=== PATIENT | female | born 1985 | race Caucasian/White ===

== ENCOUNTER 2019-07-20 06:30 | Inpatient (IN) | payer BC ==
[2019-07-20] MEDS ORDERED: OXYTOCIN 10 UNIT/ML 1 ML VIAL IM PRN (06:52)
[2019-07-20] MEDS ORDERED: TERBUTALINE 1 MG/ML VIAL SQ PRN (06:52)
[2019-07-20] MEDS ORDERED: LIDOCAINE 0.5% (PF) 5 MG/ML (50 ML SDV) SQ PRN (06:52)
[2019-07-20] MEDS ORDERED: CARBOPROST TROMETHAMINE 250 MCG/ML 1 ML AMP IM PRN (06:52)
[2019-07-20] MEDS ORDERED: AMPICILLIN 2,000 MG in SODIUM CHLORIDE 0.9% 100 ML IVPB STA (06:52)
[2019-07-20] MEDS ORDERED: METHYLERGONOVINE 0.2 MG/ML 1 ML AMP IM PRN (06:52)
--- NOTE | 2019-07-20 07:09 | P.HPOB ---
History of Present Illness H&P Date: 07/20/19 Chief Complaint: Leaking of fluid. This patient is a pleasant 33-year-old 1 para 0 female estimated date of confinement 07/28/2019 estimated gestational age 38-6/7 weeks who presents to labor and delivery with complaints of gush of fluid at approximately 5:45 this morning. Patient's care has been uncomplicated. She did have a positive culture for group B strep. Patient was also measuring big and an ultrasound approximately 5 days ago that showed 8 lbs. 3 oz. Patient is having irregular mild contractions. Examination shows gross rupture membranes and cervix 1-2 cm dilated and thick. Review of Systems Genitourinary: Reports Menstruation: Reports amenorrhea Past Medical History Past Medical History: No Reported History History of Any Multi-Drug Resistant Organisms: None Reported Past Surgical History: No Surgical Hx Reported Past Anesthesia/Blood Transfusion Reactions: No Reported Reaction Past Psychological History: No Psychological Hx Reported Smoking Status: Never smoker Past Alcohol Use History: None Reported Past Drug Use History: None Reported Medications and Allergies Home Medications Medication Instructions Recorded Confirmed Type Pnv No.95/Ferrous Fum/Folic AC 1 tab PO DAILY 07/20/19 07/20/19 History [ Multivitamin Tablet] Allergies Allergy/AdvReac Type Severity Reaction Status Date / Time No Known Allergies Allergy Verified 07/20/19 06:41 Exam Intake and Output 07/19/19 07/20/19 07/20/19 22:59 06:59 14:59 Other: Weight 103.873 kg - OBG Physical Exam Abdomen: bowel sounds normal, no diffuse tenderness, no bruit present, no guarding noted, no hepatomegaly, no splenomegaly, no mass Vulva: both: normal Vagina: Gross rupture of membranes Vagina: no discharge Cervix: no lesion (Cervix is 1-2 cm dilated and thick), no discharge Uterus: enlarged (Fundal height 41 cm) Results blood work shows she is A positive, rubella immune, RPR nonreactive, HIV nonreactive, hepatitis B negative, Glucola was normal, ultrasounds of shown normal anatomy. Most recent ultrasound 5 days ago showed the baby to be vertex 8 lbs. 3 oz. Group B strep was positive. Assessment and Plan Assessment: This is a pleasant 33-year-old 1 para 0 female 38-6/7 weeks gestation dated with spontaneous rupture membranes at quarter to 6 this morning. Patient is not having regular contractions and has a positive group B strep culture. Pl an is antibiotic prophylaxis and Pitocin induction/augmentation of labor. (1) 38 weeks gestation of Current Visit: Yes Status: Acute Code(s): Z3A.38 - 38 WEEKS GESTATION OF SNOMED Code(s): 11309002 (2) Group B streptococcal carriage complicating Current Visit: Yes Status: Acute Code(s): O99.820 - STREPTOCOCCUS B CARRIER STATE COMPLICATING SNOMED Code(s): 822564823406135 (3) Premature rupture of membranes Current Visit: Yes Status: Acute Code(s): O42.90 - REINALDO ROM, 7TH0 BETW RUPT & ONST LABR, UNSP WEEKS OF GEST SNOMED Code(s): 21903276
[2019-07-20 07:27] LABS: Basophils % (A) 0 %; Eosinophils # (A) 0.1 k/uL (0-0.7); Eosinophils % (A) 1 %; HCT 37.2 % (34.0-46.0); HGB 12.5 gm/dL (11.4-16.0); Lymphocytes # (A) 1.8 k/uL (1.0-4.8); Lymphocytes % (A) 24 %; MCH 32.3 pg (25.0-35.0); MCHC 33.6 g/dL (31.0-37.0); MCV 96.1 fL (80.0-100.0); Monocytes # (A) 0.4 k/uL (0-1.0); Monocytes % (A) 5 %; Neutrophils % (A) 67 %; Platelet Count 199 k/uL (150-450); RBC 3.87 m/uL (3.80-5.40); RDW 14.2 % (11.5-15.5); WBC 7.5 k/uL (3.8-10.6)
[2019-07-20] MEDS: LACTATED RINGERS 1,000 ML IV SCH ×3 (07:31→15:24)
[2019-07-20] MEDS: OXYTOCIN 30 UNITS/500 ML NS 30 UNIT in SALINE 1 500ML.BAG IV SCH (07:32)
[2019-07-20] MEDS ORDERED: BUTORPHANOL 1 MG/ML 1 ML VIAL IV PRN (09:09)
[2019-07-20] MEDS: AMPICILLIN 1,000 MG in SODIUM CHLORIDE 0.9% 50 ML IVPB SCH ×3 (11:41→19:26)
[2019-07-20] MEDS ORDERED: fentaNYL (PF) 50 MCG/ML 5 ML AMP ONE (12:05)
[2019-07-20] MEDS ORDERED: ROPIVACAINE 5MG/ML 20ML VIAL ONE (12:05)
[2019-07-20] MEDS ORDERED: SODIUM CHLORIDE 0.9% 100 ML BAG ONE (12:05)
--- NOTE | 2019-07-20 12:38 | P.MSEPDOC ---
Presenting Problems - Arrival Data Date of Arrival on Unit: 07/20/19 Time of Arrival on Unit: 07:00 Mode of Transport: Ambulatory - Complaint OB-Reason for Admission/Chief Complaint: Rule Out SROM Medical History - Information : 1 Para: 0 Term: 0 : 0 Abortions: Spontaneous or Elective: 0 Number of Living Children: 0 - Gestational Age Gestational Age by VALDO (wks/days): 38 Weeks and 6 Days Review of Systems - Review of Systems Constitutional: No problems Breast: No problems ENT: No problems Cardiovascular: No problems Respiratory: No problems Gastrointestinal: No problems Genitourinary: No problems Musculoskeletal: No problems Neurological: No problems Skin: No problems Vital Signs - Temperature Temperature: 97.4 F Temperature Source: Temporal Artery Scan - Pulse Right Sitting Brachial Pulse Rate: 73 Pulse Assessment Method: Automatic Cuff - Respirations Respiratory Rate: 18 Oxygen Delivery Method: Room Air O2 Sat by Pulse Oximetry: 98 - Blood Pressure Right Arm Sitting Blood Pressure: 129/77 Blood Pressure Mean: 94 Blood Pressure Source: Automatic Cuff Medical Screen Scoring (Pre) - Cervical Exam Dilation: 1-3 cm = 1 Membranes: Ruptured = 3 - Uterine Contractions Frequency: > 5 minutes apart = 1 Duration: > 40 seconds = 2 - Maternal Vital Signs Maternal Temperature: N/A Maternal Blood Pressure: N/A Signs of Preeclampsia: N/A Maternal Respirations: N/A - Maternal Trauma Maternal Trauma: N/A - Assessment - Baby A Baseline FHR: 125 Heart Rate - NICHD Category: Category I (Normal) = 0 NST: Reactive - Total Score - Baby A Total Score - Baby A: 7 - Total Score - Baby B Total Score - Baby B: 7 - Total Score - Baby C Total Score - Baby C: 7 - Level of Risk - Baby A Level of Risk - Baby A: Medium (6-9) - Level of Risk - Baby B Level of Risk - Baby B: Medium (6-9) - Level of Risk - Baby C Level of Risk - Baby C: Medium (6-9) Physician Notification (Pre) - Physician Notified Physician Notified Date: 07/20/19 Physician Notified Time: 06:55 New Order Received: Yes (admit) Disposition - Disposition OB Disposition: Admit, LDRP Suite I agree with the RN Medical Screening Exam: Yes Risk & Benefit of care provided described in d/c instruction: Yes Diagnosis: ENCOUNTER FOR FULL-TERM UNCOMPLICATED DELIVERY
[2019-07-20] MEDS ORDERED: SIMETHICONE 80 MG CHEWABLE PO PRN (21:58)
[2019-07-20] MEDS ORDERED: HYDROcodone/APAP 5-325MG 1 EACH TAB PO PRN (21:58)
[2019-07-20] MEDS ORDERED: diphenhydrAMINE 50 MG CAP PO PRN (21:58)
[2019-07-20] MEDS ORDERED: WITCH HAZEL 1 EACH MED..PAD TOPICAL PRN (21:58)
[2019-07-20] MEDS ORDERED: BENZOCAINE/MENTHOL SPRAY 1 GM/SPRAY AEROSOL TOPICAL PRN (21:58)
[2019-07-20] MEDS ORDERED: diphenhydrAMINE 50 MG/ML 1 ML VIAL IVP PRN ×2 (21:58)
[2019-07-20] MEDS ORDERED: ZOLPIDEM 5 MG TAB PO PRN (21:58)
[2019-07-20] MEDS ORDERED: ACETAMINOPHEN TAB 325 MG TAB PO PRN (21:58)
[2019-07-20] MEDS ORDERED: LANOLIN CREAM 5 GM TUBE TOPICAL PRN (21:58)
[2019-07-20] MEDS ORDERED: HYDROCORTISONE 2.5% RECTAL CREAM 30 GM TUBE RECTAL PRN (21:58)
[2019-07-20] MEDS ORDERED: diphenhydrAMINE 25 MG CAP PO PRN (21:58)
[2019-07-20] MEDS ORDERED: OXYTOCIN 20 UNITS/1000 ML NS 1,000 ML IV SCH (22:00)
--- NOTE | 2019-07-20 22:08 | P.PROBDLV ---
Vaginal Delivery Note - . Vaginal Delivery Note: Kathleen progressed to complete and pushing with vacuum assisted vaginal delivery of a viable male over a third-degree perineal laceration. During the process of pushing, baseline heart rate was between 102 and 1:15. While she was pushing the heart rate would drop into the 80s but rapid return to baseline was noted following stopping of her pushing. This happened throughout the pushing process. Once she brought the baby to the perineum, the heart rate would go from the baseline of approximately 100 down to the 60s. Again there was good return to baseline following cessation of pushing. On the last push as she brought the baby to almost the heart rate dropped into the 40s and a vacuum was applied and with the vacuum insufflated to 40 mmHg/the lowest level in the green zone for the vacuum device, using gentle traction and guidance we were able to easily deliver the head fully from the vagina and once it was delivered release of the vacuum was done last in total of approximately 5 seconds. A nuchal cord 1 was then noted and reduced. With gentle downward traction the anterior shoulder was not delivering is easily as I would like and with there being some concern over possible macrosomia I did reach into the posterior vagina and using a clockwise corkscrew motion with my finger under the exam but was easily able to deliver the remainder the baby and once baby was out immediate spontaneous cry was noted mouth nares were bulb suctioned and the baby was placed on mother's abdomen where nursery personnel assume care and up umbilical cord was clamped and cut in usual fashion. Placenta was then delivered intact and Pitocin was added to the IV. A third-degree perineal laceration was noted and it actually go posteriorly on the left side behind her hemorrhoid. Following instillation of local anesthetic and Using 3-0 Vicryl and initial base layer was placed to reapproximate the tissues and then the remainder of the laceration was repaired in usual fashion as in an episiotomy. Prior to repair and after repair I did do a rectal exam and no rectal involvement was noted. scores were 9 and 9 at one and 5 minutes respectively and the weight was 8 lbs. 3 oz. Both mother and baby are currently stable following delivery.
[2019-07-20] MEDS: IBUPROFEN 600 MG TAB PO PRN (23:35)
--- NOTE | 2019-07-21 06:09 | P.PNOBGVD ---
Subjective - Subjective Patient reports: Reports appetite normal, Reports voiding normally, Reports pain well controlled, Reports ambulating normally : doing well Objective - Latest Vital Signs Latest vital signs: Vital Signs Temp Pulse Resp BP Pulse Ox 07/21/19 04:00 99.1 F 75 18 118/62 98 07/21/19 00:00 98.5 F 98 16 128/58 07/20/19 23:55 98.6 F 100 16 127/58 07/20/19 23:25 98.1 F 81 16 120/60 07/20/19 22:55 98.0 F 86 16 124/72 07/20/19 22:40 98.2 F 72 16 119/70 07/20/19 22:25 98.5 F 82 16 121/65 07/20/19 22:10 87 16 121/58 07/20/19 21:55 98.4 F 97 16 111/57 07/20/19 12:37 97.4 F L 73 18 129/77 98 07/20/19 07:30 97.4 F L 73 18 129/77 98 07/20/19 06:42 97.0 F L 85 16 139/62 99 Intake and Output 07/20/19 07/20/19 07/21/19 14:59 22:59 06:59 Intake Total 250 250 Output Total 200 150 Balance -200 100 250 Intake: Oral 250 250 Output: Urine 200 Estimated Blood Loss 150 Other: Weight 103.873 kg - Exam Lungs: bilateral: normal Chest: Normal S1, Normal S2 Extremities: Present: normal Abdomen: Present: normal appearance, soft Uterus: Present: normal, firm Assessment and Plan Assessment: day #1. Patient is resting without new complaints. Vital signs are stable she is afebrile. Uterus is firm nontender she's having normal lochia. Plan today is to continue routine care. Most likely discharge home tomorrow. (1) 38 weeks gestation of Current Visit: Yes Status: Acute Code(s): Z3A.38 - 38 WEEKS GESTATION OF SNOMED Code(s): 10002989 (2) Group B streptococcal carriage complicating Current Visit: Yes Status: Acute Code(s): O99.820 - STREPTOCOCCUS B CARRIER STATE COMPLICATING SNOMED Code(s): 922043679438967 (3) Premature rupture of membranes Current Visit: Yes Status: Acute Code(s): O42.90 - REINALDO ROM, 7TH0 BETW RUPT & ONST LABR, UNSP WEEKS OF GEST SNOMED Code(s): 81288027
[2019-07-21 07:01] LABS: Basophils % (A) 0 %; Eosinophils % (A) 0 %; HCT 29.5 % (34.0-46.0); HGB 10.1 gm/dL (11.4-16.0); Lymphocytes % (A) 8 %; MCH 32.9 pg (25.0-35.0); MCHC 34.4 g/dL (31.0-37.0); MCV 95.6 fL (80.0-100.0); Mean Platelet Volume 8.2; Monocytes # (A) 0.6 k/uL (0-1.0); Monocytes % (A) 4 %; Neutrophils # (A) 11.9 k/uL (1.3-7.7); Neutrophils % (A) 87 %; Platelet Count 176 k/uL (150-450); RBC 3.08 m/uL (3.80-5.40); RDW 14.2 % (11.5-15.5); WBC 13.7 k/uL (3.8-10.6)
[2019-07-21] MEDS: IBUPROFEN 600 MG TAB PO PRN ×3 (08:28→23:33)
[2019-07-21] MEDS: SENNOSIDES-DOCUSATE SODIUM 1 EACH TAB PO SCH ×2 (08:28→20:08)
[2019-07-21] MEDS: OXYTOCIN 30 UNITS/500 ML NS 30 UNIT in SALINE 1 500ML.BAG IV SCH (20:12)
--- NOTE | 2019-07-22 06:00 | P.PNOBGVD ---
Subjective - Subjective Patient reports: Reports appetite normal, Reports voiding normally, Reports pain well controlled, Reports ambulating normally : doing well Objective - Latest Vital Signs Latest vital signs: Vital Signs Temp Pulse Resp BP Pulse Ox 07/22/19 00:00 98.0 F 74 16 125/79 100 07/21/19 16:00 98.4 F 79 16 117/72 07/21/19 12:00 98.2 F 82 16 101/66 07/21/19 08:00 98.1 F 75 16 120/70 Intake and Output 07/21/19 07/21/19 07/22/19 14:59 22:59 06:59 Other: # Voids 1 - Exam Lungs: bilateral: normal Chest: Normal S1, Normal S2 Extremities: Present: normal Abdomen: Present: normal appearance, soft Uterus: Present: normal, firm - Labs Labs: Abnormal Lab Results - Last 24 Hours (Table) 07/21/19 Range/Units 06:34 WBC 13.7 H (3.8-10.6) k/uL RBC 3.08 L (3.80-5.40) m/uL Hgb 10.1 L (11.4-16.0) gm/dL Hct 29.5 L (34.0-46.0) % Neutrophils # 11.9 H (1.3-7.7) k/uL Assessment and Plan Assessment: Post day #2. Patient is resting without complaints. Vital signs are stable she is afebrile. Uterus is firm nontender she's having normal lochia. Patient's baby is doing well however has not urinated and therefore will be seen by the spinner box this morning. Plan today is to continue routine care and discharge home later today. (1) 38 weeks gestation of Current Visit: Yes Status: Acute Code(s): Z3A.38 - 38 WEEKS GESTATION OF SNOMED Code(s): 40423735 (2) Group B streptococcal carriage complicating Current Visit: Yes Status: Acute Code(s): O99.820 - STREPTOCOCCUS B CARRIER STATE COMPLICATING SNOMED Code(s): 122439894221306 (3) Premature rupture of membranes Current Visit: Yes Status: Acute Code(s): O42.90 - REINALDO ROM, 7TH0 BETW RUPT & ONST LABR, UNSP WEEKS OF GEST SNOMED Code(s): 21338061
--- NOTE | 2019-07-22 06:09 | P.DS ---
Providers Date of admission: 07/20/19 06:53 Expected date of discharge: 07/22/19 Attending physician: Maxime Blancas Primary care physician: Stated None - Discharge Diagnosis(es) (1) 38 weeks gestation of Current Visit: Yes Status: Acute (2) Group B streptococcal carriage complicating Current Visit: Yes Status: Acute (3) Premature rupture of membranes Current Visit: Yes Status: Acute Hospital Course: Please see dictated H&P for intimate details of this patient's admission. Brief summary this is a pleasant 33-year-old 1 para 0 female 38-5/7 weeks' gestation is admitted to labor and delivery with spontaneous rupture membranes. Patient is given antibiotic prophylaxis for positive group B strep culture and Pitocin augmentation of labor. She subsequent was on have a vaginal delivery viable male infant. Please see dictated delivery note per Dr. Escobar. hemorrhage 2 patient's felt to be stable for discharge home follow up with me in 6 weeks. Procedures: Augmentation of labor and normal vaginal delivery (vacuum assist) Patient Condition at Discharge: Good Plan - Discharge Summary New Discharge Prescriptions: New Ibuprofen [Motrin] 600 mg PO Q6HR PRN #40 tab PRN Reason: Mild Pain Or Fever >= 100.5 No Action Pnv No.95/Ferrous Fum/Folic AC [ Multivitamin Tablet] 1 tab PO DAILY Discharge Medication List Pnv No.95/Ferrous Fum/Folic AC [ Multivitamin Tablet] 1 tab PO DAILY 07/20/19 [History] Ibuprofen [Motrin] 600 mg PO Q6HR PRN #40 tab 07/22/19 [Rx] Follow up Appointment(s)/Referral(s): Maxime Blancas MD [STAFF PHYSICIAN] - 08/31/19 11:00 am Patient Instructions/Handouts: Vaginal Delivery (DC) Activity/Diet/Wound Care/Special Instructions: No intercourse or anything per vagina for 6 weeks. Please call if any fever, chills, excessive vaginal bleeding, and/or abdominal pain. Discharge Disposition: HOME SELF-CARE
[2019-07-22] MEDS: IBUPROFEN 600 MG TAB PO PRN (07:50)
[2019-07-22] MEDS: SENNOSIDES-DOCUSATE SODIUM 1 EACH TAB PO SCH (07:51)
[2019-07-22 09:49] VITALS: BP 125/85; PULSE 75; RESP 18; TEMP 98.3
== END 2019-07-22 15:30 | disposition home or self-care (01) | DRG 768 ==
LOC: FBPOP 06:30 → 4FBP 06:53
PROVIDERS: ADMIT Obstetrics & Gynecology; ATTEND Obstetrics & Gynecology
PROC: 10D07Z6 Extraction of Products of Conception, Vacuum, Via Natural or Artificial Opening (ICD-10-PCS; principal; 2019-07-20)
PROC: 0DQR0ZZ Repair Anal Sphincter, Open Approach (ICD-10-PCS; 2019-07-20)
DX: O42.92 Full-term premature rupture of membranes, unspecified as to length of time between rupture and onset of labor (principal); Z37.0 Single live birth; O70.20 Third degree perineal laceration during delivery, unspecified; O22.43 Hemorrhoids in pregnancy, third trimester; O69.81X0 Labor and delivery complicated by cord around neck, without compression, not applicable or unspecified; O99.824 Streptococcus B carrier state complicating childbirth; Z3A.38 38 weeks gestation of pregnancy
CPT/HCPCS: 59025; 84112; 85025; 86850; 86900; 86901; 99213

== ENCOUNTER → 2020-07-20 | Outpatient (CLI) | payer OTHER ==
[2020-07-20 08:14] LABS: HGB 12.9 gm/dL (11.4-16.0); MCH 30.3 pg (25.0-35.0); MCHC 32.3 g/dL (31.0-37.0); MCV 93.8 fL (80.0-100.0); Mean Platelet Volume 7.2; Platelet Count 203 k/uL (150-450); RBC 4.26 m/uL (3.80-5.40); RDW 13.8 % (11.5-15.5); WBC 5.2 k/uL (3.8-10.6)
[2020-07-20 08:23] LABS: African American GFR (CKD) >90 (>60 ml/min/1.73 sqM); Glucose 97 mg/dL (74-99); Non-African American GFR(CKD) >90 (>60 ml/min/1.73 sqM)
--- NOTE | 2020-07-20 08:23 | US ---
EXAMINATION TYPE: Transabdominal DATE OF EXAM: 07/20/2020 7:21 AM COMPARISON: NONE CLINICAL HISTORY: Z36 Confirm dates,Z34.81. EXAM PERFORMED: Transabdominal (TA) EXAM MEASUREMENTS: GESTATIONAL AGE / DATING Physician Established: Not yet established Dates by LMP: ( 9 weeks/6 days) EDC: 02/16/21 Dates by First Scan: No previous. Dates by Current Scan for: (10 weeks/4 days) EDC: 02/11/2021 MATERNAL ANATOMY Uterus: 15.0 x 7.9 x 6.3cm Right Ovary: 1.8 x 2.1 x 1.0cm Left Ovary: 3.3 x 2.4 x 2.3cm Post CDS / Adnexa: wnl Presence of free fluid: no Presence of corpus luteal cyst: in left ovary = 2.0 x 1.7 x 2.1cm Presence of subchorionic bleed: no GESTATION / SURVEY CRL: 3.6cm (10 weeks/4 day Yolk Sac (normal less than 6mm): 3.7mm Heart Rate: 172 bpm Rhythm: Normal IUP: Single IUP Nuchal Translucency 10-14wks (normal less than 3mm): 1.1mm Date of LMP: 05/12/2020 Beta HcG (if available): NA Single, live IUP, 10 weeks/4 days, EDC: 02/11/2021, HR 172bpm. IMPRESSION: 1. Single intrauterine gestation estimated at 10 weeks 4 days gestation based on crown-rump length. C ardiac activity measures 172 bpm.
[2020-07-20 16:44] LABS: Hepatitis B Surface Antigen Non-Reactive (Non-Reactive)
[2020-07-20 17:34] LABS: HIV 2 AB Non-Reactive (Non-Reactive); HIV AB P24 Non-Reactive (Non-Reactive); HIV P24 AG Non-Reactive (Non-Reactive)
== END | disposition home or self-care (01) ==
LOC: RADUSWWP 07:00
PROVIDERS: ATTEND Obstetrics & Gynecology
DX: Z36.9 Encounter for antenatal screening, unspecified (principal); Z3A.10 10 weeks gestation of pregnancy; Z34.81 Encounter for supervision of other normal pregnancy, first trimester
CPT/HCPCS: 76801; 76813; 82565; 82947; 85027; 86762; 86780; 86850; 86900; 86901; 87340; 87390

== ENCOUNTER 2021-02-08 09:57 | Inpatient (IN) | payer OTHER ==
[2021-02-05 12:08] VITALS: BMI 43.0
--- NOTE | 2021-02-08 06:57 | P.HPOB ---
History of Present Illness H&P Date: 02/08/21 Chief Complaint: Primary section and tubal ligation This patient is a pleasant 35-year-old 2 para 1 female estimated date of confinement 02/15/2021 estimated gestational age 39-0/7 weeks who presents to labor and delivery for primary section for history of previous traumatic delivery and increased risk of shoulder dystocia. Patient is also requesting permanent sterilization. Patient's history is such that her last she had a long labor with an hour and a half of pushing, vacuum delivery, third degree laceration and also possible shoulder dystocia. Patient I discussed her delivery was requested section at this time which is reasonable. Patient also requesting permanent sterilization. is been uncomplicated. Review of Systems Genitourinary: Reports Menstruation: Reports amenorrhea Past Medical History Past Medical History: No Reported History History of Any Multi-Drug Resistant Organisms: None Reported Past Surgical History: No Surgical Hx Reported Past Anesthesia/Blood Transfusion Reactions: No Reported Reaction Past Psychological History: No Psychological Hx Reported Smoking Status: Never smoker Past Alcohol Use History: None Reported Past Drug Use History: None Reported - Past Family History Mother Family Medical History: No Reported History Medications and Allergies Home Medications Medication Instructions Recorded Confirmed Type Pnv No.95/Ferrous Fum/Folic AC 1 tab PO DAILY 07/20/19 02/05/21 History [ Multivitamin Tablet] Ibuprofen [Motrin] 600 mg PO Q6HR PRN #40 tab 07/22/19 02/05/21 Rx Allergies Allergy/AdvReac Type Severity Reaction Status Date / Time No Known Allergies Allergy Verified 02/05/21 12:02 Exam - OBG Physical Exam Abdomen: bowel sounds normal, no diffuse tenderness, no bruit present, no guarding noted, no hepatomegaly, no splenomegaly, no mass Vulva: both: normal Vagina: normal moisture, no discharge Cervix: no lesion, no discharge Uterus: enlarged Results blood work shows she is A positive, rubella immune, RPR nonreactive, hepatitis B negative, HIV is nonreactive, ultrasounds have been normal, group B strep was positive. Assessment and Plan Assessment: This is a pleasant 35-year-old 2 para 1 female 39-0/7 weeks gestation who is admitted to labor and delivery for primary section secondary to history of previous traumatic vaginal delivery and also requesting permanent sterilization. Plan is primary low transverse section and bilateral partial salpingectomy. Patient does understand that a tubal ligation is considered permanent however there is a failure rate of approximately less than 5 per thousand procedures done. She also understands surgery itself and apparently has risks including risks of infection, bleeding, possible injury to bowel, bladder, vessels, and/or other organs. All the patient's questions are answered and a written consent obtained. (1) 39 weeks gestation of Status: Acute Code(s): Z3A.39 - 39 WEEKS GESTATION OF SNOMED Code(s): 14206196 (2) Trauma to vagina during delivery Status: Acute Code(s): O71.89 - OTHER SPECIFIED OBSTETRIC TRAUMA SNOMED Code(s): 126605165 (3) Group B streptococcal carriage complicating Status: Acute Code(s): O99.820 - STREPTOCOCCUS B CARRIER STATE COMPLICATING SNOMED Code(s): 322732327380069
[2021-02-08] MEDS ORDERED: CITRIC ACID-SODIUM CITRATE 15 ML CUP PO ONE (10:52)
[2021-02-08] MEDS ORDERED: LACTATED RINGERS 1,000 ML IV ONE (10:52)
[2021-02-08] MEDS: LACTATED RINGERS 1,000 ML IV SCH ×3 (11:21→19:05)
[2021-02-08 11:41] LABS: Basophils % (A) 0 %; Eosinophils % (A) 1 %; HCT 36.8 % (34.0-46.0); HGB 12.6 gm/dL (11.4-16.0); Lymphocytes # (A) 1.2 k/uL (1.0-4.8); Lymphocytes % (A) 14 %; MCH 32.8 pg (25.0-35.0); MCHC 34.3 g/dL (31.0-37.0); MCV 95.4 fL (80.0-100.0); Mean Platelet Volume 8.5; Monocytes # (A) 0.4 k/uL (0-1.0); Monocytes % (A) 5 %; Neutrophils % (A) 80 %; Platelet Count 188 k/uL (150-450); RBC 3.86 m/uL (3.80-5.40); RDW 14.3 % (11.5-15.5); WBC 8.8 k/uL (3.8-10.6)
[2021-02-08] MEDS ORDERED: MORPHINE SULFATE (PF) 0.3 MG/0.3 ML SYR ONE (12:08)
[2021-02-08] MEDS ORDERED: KETOROLAC 15 MG/ML 1 ML VIAL ONE (12:08)
[2021-02-08] MEDS ORDERED: ONDANSETRON 4 MG/2 ML VIAL ONE (12:08)
[2021-02-08] MEDS ORDERED: NALBUPHINE 10 MG/ML (1 ML AMP) ONE (12:08)
[2021-02-08] MEDS ORDERED: OXYTOCIN 30 UNITS/500 ML NS BAG IV ONE (12:08)
[2021-02-08] MEDS ORDERED: ONDANSETRON 4 MG/2 ML VIAL IVP PRN (13:00)
[2021-02-08] MEDS ORDERED: LANOLIN CREAM 5 GM TUBE TOPICAL PRN (13:00)
[2021-02-08] MEDS ORDERED: IBUPROFEN 600 MG TAB PO PRN (13:00)
[2021-02-08] MEDS ORDERED: ZOLPIDEM 5 MG TAB PO PRN (13:00)
[2021-02-08] MEDS ORDERED: METOCLOPRAMIDE 5 MG/ML 2 ML VIAL IVP PRN (13:00)
[2021-02-08] MEDS ORDERED: OXYTOCIN 30 UNITS/500 ML NS 30 UNIT in SALINE 1 500ML.BAG IV SCH (13:00)
[2021-02-08] MEDS ORDERED: NALOXONE 0.4 MG/ML 1 ML VIAL IV PRN (13:00)
[2021-02-08] MEDS ORDERED: diphenhydrAMINE 25 MG CAP PO PRN (13:00)
--- NOTE | 2021-02-08 13:01 | P.OP ---
Date of Procedure: 02/08/21 Preoperative Diagnosis: #1: 39-0/7 week intrauterine . #2: History of previous traumatic vaginal delivery #3: Multi parity desires permanent sterilization Postoperative Diagnosis: #1: Same. #2: Brow presentation. #3: True knot the umbilical cord Procedure(s) Performed: Primary low transverse section and bilateral partial salpingectomy Anesthesia: spinal Surgeon: Maxime Blancas Fire Coordinator #1: Dawood Escobar Estimated Blood Loss (ml): 600 Pathology: other (Bilateral fallopian tube segments) Condition: stable Disposition: floor Indications for Procedure: Please see dictated H&P for intimate details of this patient's admission. Brief summary this is a pleasant 35-year-old 2 para 1 female 39-0/7 weeks gestation who is admitted to labor and delivery for primary section and tubal ligation secondary to previous history of traumatic vaginal delivery and permanent sterilization. Patient understands a tubal ligation is permanent, however there is a failure rate of approximately less than 5 per thousand procedures done. She also understands surgery itself and apparently has risks and risks of infection, bleeding, possible injury bowel, bladder, vessels, and/or other organs. All the patient's questions are answered written consent obtained. Operative Findings: This is a vigorous viable male Apgars 8 and 9 delivery time is 1223 hrs. Infant was brow presentation with a true knot in the umbilical cord. Description of Procedure: This patient has a Joshua catheter placed to straight drain. She is subsequently taken to the operating room where she sat up and spinal anesthetic is administered without incident. With adequate level of anesthesia she has abdominal prep and drape. Scalpels and taken Pfannenstiel skin incision is then made. A second scalpel is taken down the fascia the fascia scored with a knife. Fascial incision extended bilaterally using the Lopez scissors. Fascia is then dissected off the rectus muscle sharply. Rectus muscles are the peritoneum identified and entered sharply. Peritoneal incision extended superior and inferior without difficulty. Bladder blade is then placed. Bladder peritoneum taken sharply off the lower uterine segment. Scalpels and taken low transverse uterine incision is then made. Using a hemostat I into the uterine cavity bluntly and there is loss of clear fluid. Uterine incision then extended bluntly. Infant is found to be brow presentation with a loop of cord presenting at the lower uterine segment. Infant's head is then guided through the incision with fundal pressure. Mouth and nares are bulb suctioned. There is no evidence of a nuchal cord. We then have deliver the rest this 's body was fundal pressure. This is a vigorous viable male Apgars 8 and 9 delivery time is 1223 hrs. After delivery of the infant the umbilical cord is doubly clamped and cut it is noted there is a true knot. The infant's head off to the nurses in attendance. Placenta is then manually extracted intact. Uterine cavity is then explored and found to be clear of all debris. Uterine incision then closed using 0 Vicryl running locked fashion 2 layers. Excellent hemostasis is noted the bladder peritoneum was then closed using a 3-0 Vicryl. I then turned my attention to the left fallopian tube approximately 4 cm from the cornual insertion a small window is made to the mesial salpinx with Bovie cautery. Using a 2-0 silk I doubly ligate a 2 cm segment of fallopian tube. This is handed off to pathology. Cauterization is done of the tubal ends and good hemostasis is noted using a similar technique on the right side a similar procedures done and a 2 cm segment of tube was excised transected and cauterized. This completed excess fluid is removed from the abdomen and pelvis. Uterus placed back into the abdomen. The parietal peritoneum was then identified and closed using 0 Vicryl running fashion. Rectus muscles reapproximated Vicryl interrupted fashion. Fascial incision is then closed using a 0 PDS in a running fashion. Fascial incision is intact and hemostatic. Subcutaneous tissues and closed using a 3-0 Vicryl. Skin is and closed using eliud. All counts correct 3. Infant and mother stable in delivery room. No complications.
[2021-02-08] MEDS: diphenhydrAMINE 50 MG/ML 1 ML VIAL IVP PRN ×2 (13:29→21:53)
[2021-02-08] MEDS: ACETAMINOPHEN TAB 500 MG TAB PO PRN (19:36)
[2021-02-09 00:59] VITALS: RESP 16
[2021-02-09] MEDS: KETOROLAC 15 MG/ML 1 ML VIAL IVP SCH ×2 (05:09→05:10)
--- NOTE | 2021-02-09 07:16 | P.PNOBGPC ---
Subjective - Subjective Patient reports: Reports appetite normal, Reports voiding normally, Reports pain well controlled, Reports ambulating normally : doing well Objective - Vital Signs Latest vital signs: Vital Signs Temp Pulse Resp BP Pulse Ox 02/09/21 03:40 98.4 F 62 16 115/67 98 02/09/21 00:00 98.5 F 63 16 137/73 99 02/08/21 20:00 97.4 F L 62 16 105/62 97 02/08/21 15:51 97.7 F 57 L 15 108/65 97 02/08/21 14:44 96.3 F L 54 L 14 116/69 100 02/08/21 13:50 96.3 F L 61 15 117/65 99 02/08/21 13:35 96.1 F L 60 15 123/66 100 02/08/21 13:20 96.3 F L 53 L 15 121/60 98 02/08/21 13:05 96.1 F L 66 14 119/58 99 02/08/21 12:50 96.0 F L 72 14 115/54 96 02/08/21 10:41 97.7 F 95 15 119/65 100 Intake and Output 02/08/21 02/09/21 02/09/21 22:59 06:59 14:59 Intake Total 100 750 Output Total 500 450 Balance -400 300 Intake: IV 750 Oral 100 Output: Urine 500 450 Uretheral (Joshua) 250 Other: # Voids 1 - Exam Lungs: bilateral: normal Chest: Normal S1, Normal S2 Extremities: Present: normal Abdomen: Present: normal appearance, soft. Absent: distention, tenderness Incision: Present: normal, dry, intact Uterus: Present: normal, firm Assessment and Plan Assessment: Postoperative day #1. Patient is resting without complaints. Vital signs are stable and she is afebrile. Uterus is firm nontender and her incision is intact and dry. CBC is pending at time is dictation. I impression is a normal postoperative course. Plan is to check CBC, encourage ambulation, allow the patient to shower, and continue routine postoperative care. (1) 39 weeks gestation of Current Visit: No Status: Acute Code(s): Z3A.39 - 39 WEEKS GESTATION OF SNOMED Code(s): 06680182 (2) Trauma to vagina during delivery Current Visit: No Status: Acute Code(s): O71.89 - OTHER SPECIFIED OBSTETRIC TRAUMA SNOMED Code(s): 525976003 (3) Group B streptococcal carriage complicating Current Visit: No Status: Acute Code(s): O99.820 - STREPTOCOCCUS B CARRIER STATE COMPLICATING SNOMED Code(s): 660161542354078
[2021-02-09 07:36] LABS: Basophils % (A) 0 %; Eosinophils % (A) 0 %; HCT 30.5 % (34.0-46.0); HGB 10.5 gm/dL (11.4-16.0); Lymphocytes # (A) 1.1 k/uL (1.0-4.8); Lymphocytes % (A) 12 %; MCH 33.4 pg (25.0-35.0); MCHC 34.5 g/dL (31.0-37.0); MCV 96.8 fL (80.0-100.0); Mean Platelet Volume 8.5; Monocytes # (A) 0.5 k/uL (0-1.0); Monocytes % (A) 5 %; Neutrophils # (A) 7.7 k/uL (1.3-7.7); Neutrophils % (A) 82 %; Platelet Count 153 k/uL (150-450); RBC 3.15 m/uL (3.80-5.40); RDW 14.5 % (11.5-15.5); WBC 9.5 k/uL (3.8-10.6)
[2021-02-09] MEDS: ACETAMINOPHEN TAB 500 MG TAB PO PRN ×2 (08:26→16:27)
[2021-02-09] MEDS: SENNOSIDES-DOCUSATE SODIUM 1 EACH TAB PO PRN ×2 (08:26→20:10)
[2021-02-09] MEDS: IBUPROFEN 600 MG TAB PO PRN ×3 (11:13→23:58)
[2021-02-09] MEDS: SIMETHICONE 80 MG CHEWABLE PO PRN ×2 (16:31→23:58)
--- NOTE | 2021-02-09 20:54 | P.PN ---
Progress Note - Text 02/09/21 [id number] 85-year-old female status post with a spinal Duramorph. Patient seen and evaluated this evening for postop pain control, patient has a VAS of 3, she had pruritus but has since resolved. Patient doing well
[2021-02-10] MEDS: ACETAMINOPHEN TAB 500 MG TAB PO PRN (03:54)
--- NOTE | 2021-02-10 07:47 | P.PNOBGPC ---
Subjective - Subjective Patient reports: Reports appetite normal, Reports voiding normally, Reports pain well controlled, Reports ambulating normally : doing well Objective - Vital Signs Latest vital signs: Vital Signs Temp Pulse Resp BP Pulse Ox 02/10/21 00:00 98.4 F 64 16 137/66 100 02/09/21 16:00 99.1 F 80 16 108/71 02/09/21 12:00 98.2 F 88 16 125/69 02/09/21 08:00 98.2 F 79 16 103/64 - Exam Lungs: bilateral: normal Chest: Normal S1, Normal S2 Extremities: Present: normal Abdomen: Present: normal appearance, soft. Absent: distention, tenderness Incision: Present: normal, dry, intact Uterus: Present: normal, firm Assessment and Plan Assessment: Postoperative day #2. Patient is resting without new complaints wishes to go home. Vital signs are stable she is afebrile. Uterus is firm nontender and she is having normal lochia. Impression this is a normal postoperative course. Plan is to continue routine postoperative care discharge home later today (1) 39 weeks gestation of Current Visit: No Status: Acute Code(s): Z3A.39 - 39 WEEKS GESTATION OF SNOMED Code(s): 60238033 (2) Trauma to vagina during delivery Current Visit: No Status: Acute Code(s): O71.89 - OTHER SPECIFIED OBSTETRIC TRAUMA SNOMED Code(s): 044537800 (3) Group B streptococcal carriage complicating Current Visit: No Status: Acute Code(s): O99.820 - STREPTOCOCCUS B CARRIER STATE COMPLICATING SNOMED Code(s): 020188823657791
--- NOTE | 2021-02-10 07:49 | P.DS ---
Providers Date of admission: 02/08/21 09:57 Expected date of discharge: 02/10/21 Attending physician: Maxime Blancas Primary care physician: Stated None - Discharge Diagnosis(es) (1) 39 weeks gestation of Current Visit: No Status: Acute (2) Trauma to vagina during delivery Current Visit: No Status: Acute (3) Group B streptococcal carriage complicating Current Visit: No Status: Acute Hospital Course: Please see dictated H&P for intimate details of this patient's admission. Brief summary this pleasant 35-year-old 2 para 1 female 39 weeks gestation admitted to labor and delivery for primary section and tubal ligation. Patient undergoes above-named surgeries. Please see dictated operative note. Postoperative and 2 patient's felt be stable for discharge home follow up with pa Procedures: Primary low transverse section and bilateral partial salpingectomy Patient Condition at Discharge: Good Plan - Discharge Summary Discharge Rx Participant: Yes New Discharge Prescriptions: New Ibuprofen [Motrin] 600 mg PO Q6H PRN #30 tab PRN Reason: Pain oxyCODONE HCL [OxyIR] 5 mg PO Q4HR PRN #18 tab PRN Reason: Pain Discontinued Ibuprofen [Motrin] 600 mg PO Q6HR PRN #40 tab PRN Reason: Mild Pain Or Fever >= 100.5 No Action Pnv No.95/Ferrous Fum/Folic AC [ Multivitamin Tablet] 1 tab PO DAILY Discharge Medication List Pnv No.95/Ferrous Fum/Folic AC [ Multivitamin Tablet] 1 tab PO DAILY 07/20/19 [History] Ibuprofen [Motrin] 600 mg PO Q6H PRN #30 tab 02/09/21 [Rx] oxyCODONE HCL [OxyIR] 5 mg PO Q4HR PRN #18 tab 02/09/21 [Rx] Follow up Appointment(s)/Referral(s): Maxime Blancas MD [STAFF PHYSICIAN] - 02/15/21 1:30 pm (03-21-2021 at 14:15) Patient Instructions/Handouts: (DC) Activity/Diet/Wound Care/Special Instructions: No heavy lifting or strenuous activity for 6 weeks. No intercourse or anything per vagina for 6 weeks. Please call if any fever, chills, excessive vaginal bleeding, and/or abdominal pain. Discharge Disposition: HOME SELF-CARE
[2021-02-10] MEDS: SENNOSIDES-DOCUSATE SODIUM 1 EACH TAB PO PRN (09:11)
[2021-02-10] MEDS: IBUPROFEN 600 MG TAB PO PRN (09:11)
[2021-02-10 09:37] VITALS: BP 113/77; PULSE 94; TEMP 98.9
== END 2021-02-10 11:15 | disposition home or self-care (01) | DRG 785 ==
LOC: 4FBP 09:57
PROVIDERS: ADMIT Obstetrics & Gynecology; ATTEND Obstetrics & Gynecology
PROC: 0UB70ZZ Excision of Bilateral Fallopian Tubes, Open Approach (ICD-10-PCS; 2021-02-08)
PROC: 0UQGXZZ Repair Vagina, External Approach (ICD-10-PCS; 2021-02-08)
PROC: 4A0HX4Z Measurement of Products of Conception, Cardiac Electrical Activity, External Approach (ICD-10-PCS; 2021-02-08)
PROC: 10D00Z1 Extraction of Products of Conception, Low, Open Approach (ICD-10-PCS; principal; 2021-02-08 12:00)
DX: O32.3XX0 Maternal care for face, brow and chin presentation, not applicable or unspecified (principal); O71.89 Other specified obstetric trauma; O69.2XX0 Labor and delivery complicated by other cord entanglement, with compression, not applicable or unspecified; O99.824 Streptococcus B carrier state complicating childbirth; O99.73 Diseases of the skin and subcutaneous tissue complicating the puerperium; Z37.0 Single live birth; L29.8 Other pruritus; Z3A.39 39 weeks gestation of pregnancy
CPT/HCPCS: 85025; 86850; 86900; 86901; 88302

== ENCOUNTER 2022-04-11 19:18 | Emergency (ER) | payer OTHER ==
[2022-04-11 19:40] VITALS: BP 156/74; PULSE 76; RESP 16; TEMP 98.2
[2022-04-11] MEDS ORDERED: ONDANSETRON 4 MG/2 ML VIAL IVP STA (19:56)
[2022-04-11] MEDS ORDERED: SODIUM CHLORIDE 0.9% 1,000 ML IV STA (19:56)
[2022-04-11 20:34] LABS: Basophils % (A) 0 %; Eosinophils # (A) 0.1 k/uL (0-0.7); Eosinophils % (A) 1 %; HCT 40.6 % (34.0-46.0); HGB 13.5 gm/dL (11.4-16.0); Lymphocytes # (A) 1.1 k/uL (1.0-4.8); Lymphocytes % (A) 10 %; MCH 30.2 pg (25.0-35.0); MCHC 33.3 g/dL (31.0-37.0); MCV 90.9 fL (80.0-100.0); Mean Platelet Volume 7.9; Monocytes # (A) 0.4 k/uL (0-1.0); Monocytes % (A) 4 %; Neutrophils # (A) 9.3 k/uL (1.3-7.7); Neutrophils % (A) 85 %; Platelet Count 247 k/uL (150-450); RBC 4.46 m/uL (3.80-5.40); RDW 13.1 % (11.5-15.5); WBC 10.9 k/uL (3.8-10.6)
[2022-04-11 20:53] LABS: ALT 14 U/L (4-34); AST 16 U/L (14-36); African American GFR (CKD) >90 (>60 ml/min/1.73 sqM); Albumin 4.9 g/dL (3.5-5.0); Alkaline Phosphatase 71 U/L (38-126); Anion Gap 14 mmol/L; Blood Urea Nitrogen 11 mg/dL (7-17); Calcium 9.6 mg/dL (8.4-10.2); Carbon Dioxide 24 mmol/L (22-30); Chloride 101 mmol/L (98-107); Glucose 116 mg/dL (74-99); Non-African American GFR(CKD) >90 (>60 ml/min/1.73 sqM); Potassium 4.3 mmol/L (3.5-5.1); Sodium 139 mmol/L (137-145); Total Bilirubin 0.3 mg/dL (0.2-1.3); Total Protein 7.7 g/dL (6.3-8.2)
--- NOTE | 2022-04-11 21:08 | XR ---
EXAMINATION TYPE: XR KUB DATE OF EXAM: 04/11/2022 COMPARISON: NONE HISTORY: Hematemesis TECHNIQUE: 2 views upright FINDINGS: There is no sign of intestinal obstruction or pneumoperitoneum. Fecal pattern is normal. Zahraa ng bases are clear. No pathologic calcifications over the kidneys. IMPRESSION: Nonacute abdomen.
--- NOTE | 2022-04-11 21:49 | ED ---
General Adult HPI - General Chief complaint: Nausea/Vomiting/Diarrhea Stated complaint: vomitting blood Time Seen by Provider: 04/11/22 19:48 Source: patient Mode of arrival: ambulatory Limitations: no limitations - History of Present Illness Initial comments: Patient is a 36-year-old female presenting with chief complaint of hematemesis. Patient was on her boat this afternoon when she began feeling nauseous due to motion sickness. When she vomited she noticed red streaks of blood throughout the vomit. Patient denies alcohol abuse. Patient states she had 2 episodes of vomiting and noticed blood streaks in both episodes. She is not on any blood thinners. Denies chest pain, shortness of breath, fever, chills, abdominal pain, hematochezia, melena, cough, URI-like symptoms. - Related Data Home Medications Medication Instructions Recorded Confirmed No Known Home Medications 04/11/22 04/11/22 Allergies Allergy/AdvReac Type Severity Reaction Status Date / Time No Known Allergies Allergy Verified 04/11/22 19:37 Review of Systems ROS Statement: Those systems with pertinent positive or pertinent negative responses have been documented in the HPI. ROS Other: All systems not noted in ROS Statement are negative. Past Medical History Past Medical History: No Reported History Additional Past Medical History / Comment(s): wisdom teeth surgery History of Any Multi-Drug Resistant Organisms: None Reported Past Surgical History: No Surgical Hx Reported Additional Past Surgical History / Comment(s): wisdom teeth surgery Past Anesthesia/Blood Transfusion Reactions: No Reported Reaction Past Psychological History: No Psychological Hx Reported Smoking Status: Never smoker Past Alcohol Use History: None Reported Past Drug Use History: None Reported - Past Family History Mother Family Medical History: No Reported History Father Additional Family Medical History / Comment(s): borderline diabetic and has MS General Exam Limitations: no limitations General appearance: alert, in no apparent distress Head exam: Present: atraumatic, normocephalic, normal inspection Eye exam: Present: normal appearance, PERRL, EOMI. Absent: scleral icterus, conjunctival injection, periorbital swelling Neck exam: Present: normal inspection Respiratory exam: Present: normal lung sounds bilaterally. Absent: respiratory distress, wheezes, rales, rhonchi, stridor Cardiovascular Exam: Present: regular rate, normal rhythm, normal heart sounds. Absent: systolic murmur, diastolic murmur, rubs, gallop, clicks GI/Abdominal exam: Present: soft. Absent: distended, tenderness, guarding, rebound, rigid Neurological exam: Present: alert, oriented X3, CN II-XII intact Psychiatric exam: Present: normal affect, normal mood Skin exam: Present: warm, dry, intact, normal color. Absent: rash Course Vital Signs 04/11/22 19:38 Temperature 98.2 F Pulse Rate 76 Respiratory 16 Rate Blood Pressure 156/74 O2 Sat by Pulse 98 Oximetry Medical Decision Making - Medical Decision Making Patient is a 36-year-old female presenting with chief complaint of hematemesis. She was nauseous while on her boat earlier today had 2 episodes of vomiting with some bright red blood streaks throughout. On examination there is no abdominal pain, patient has not continued to cough or vomit up blood. WBC 10.9, likely reactive. Hemoglobin 13.5. KUB x-ray shows nonacute abdomen. Patient responded well to Zofran, feels well enough to go home. Blood is likely due to Hilary-Slater tear. Patient appears stable for discharge with outpatient follow-up at this time. Follow-up with PCP. Report back to ER with any new or worsening symptoms. Discussed return parameters and answered all questions. Patient conveyed verbal understanding and agreed to the plan. I discussed this case in detail with my attending Dr. James - Lab Data Result diagrams: 04/11/22 20:25 04/11/22 20:25 Lab Results 04/11/22 04/11/22 Range/Units 20:25 20:25 WBC 10.9 H (3.8-10.6) k/uL RBC 4.46 (3.80-5.40) m/uL Hgb 13.5 (11.4-16.0) gm/dL Hct 40.6 (34.0-46.0) % MCV 90.9 (80.0-100.0) fL MCH 30.2 (25.0-35.0) pg MCHC 33.3 (31.0-37.0) g/dL RDW 13.1 (11.5-15.5) % Plt Count 247 (150-450) k/uL MPV 7.9 Neutrophils % 85 % Lymphocytes % 10 % Monocytes % 4 % Eosinophils % 1 % Basophils % 0 % Neutrophils # 9.3 H (1.3-7.7) k/uL Lymphocytes # 1.1 (1.0-4.8) k/uL Monocytes # 0.4 (0-1.0) k/uL Eosinophils # 0.1 (0-0.7) k/uL Basophils # 0.0 (0-0.2) k/uL Sodium 139 (137-145) mmol/L Potassium 4.3 (3.5-5.1) mmol/L Chloride 101 (98-107) mmol/L Carbon Dioxide 24 (22-30) mmol/L Anion Gap 14 mmol/L BUN 11 (7-17) mg/dL Creatinine 0.79 (0.52-1.04) mg/dL Est GFR (CKD-EPI)AfAm >90 (>60 ml/min/1.73 sqM) Est GFR (CKD-EPI)NonAf >90 (>60 ml/min/1.73 sqM) Glucose 116 H (74-99) mg/dL Calcium 9.6 (8.4-10.2) mg/dL Total Bilirubin 0.3 (0.2-1.3) mg/dL AST 16 (14-36) U/L ALT 14 (4-34) U/L Alkaline Phosphatase 71 (38-126) U/L Total Protein 7.7 (6.3-8.2) g/dL Albumin 4.9 (3.5-5.0) g/dL Disposition Clinical Impression: Hilary-Slater tear Disposition: HOME SELF-CARE Condition: Good Instructions (If sedation given, give patient instructions): Acute Nausea and Vomiting (ED), Hematemesis (ED), Hilary-Slater Syndrome (ED) Additional Instructions: Follow-up with PCP. Report back to ER with any new or worsening symptoms. Is patient prescribed a controlled substance at d/c from ED?: No Referrals: None,Stated [Primary Care Provider] - 1-2 days Time of Disposition: 21:49
== END 2022-04-11 21:56 | disposition home or self-care (01) ==
LOC: EC 19:18
DX: K22.6 Gastro-esophageal laceration-hemorrhage syndrome (principal)
CPT/HCPCS: 96374; 96361; 36415; 80053; 85025; 74018; 99284; J2405